=== PATIENT | male | born 1975 | race Caucasian/White ===

== ENCOUNTER 2016-12-11 11:28 | Emergency (ER) | payer MEDICAID ==
[~2016-12-11] VITALS: Ht 182.9 cm; Wt 109.1 kg
[~2016-12-11 11:28] MED LIST: BUPR150T8 PO; BUSP15TA3 PO; GABA400C PO; HYDR-3797 PO; PRAZ2CAP PO; PRAZ2CAP2 PO; QUET100T69 PO; QUET300T44 PO; ZOLP5TAB6 PO
[2016-12-11 11:30] VITALS: BP 170/112; PULSE 93; RESP 16; O2SAT 97
--- NOTE | 2016-12-11 12:09 | ED.REPORT ---
HPI-Psychiatric Illness Date of Service December 11, 2016 ED Provider: History of Present Illness: etoh is 0.00 at 1209. lost safe space was in the corner of his house, states will be losing his house. Mother has had 3 strokes in 3 months. does not want to be admitted. wants help. no primary care doesn't like providers. [facility] no thoughts of self harm U tox is positive for thc only. Nursing Notes Stated Complaint: POSSIBLE PTSD CRISIS Chief Complaint: Psychiatric Complaint Nursing Notes Reviewed: Yes Allergies: Coded Allergies: No Known Allergies (Verified Allergy, Unknown, 12/11/16) Scheduled Bupropion ER (Wellbutrin SR) 150 Mg Tablet.er 150 MG PO BID Buspirone (Buspirone) 15 Mg Tablet 15 MG PO BID Gabapentin (Neurontin) 400 Mg Capsule 1,200 MG PO BID Prazosin (Prazosin) 2 Mg Capsule 2 MG PO HS Prazosin (Minipress) 2 Mg Capsule 4 MG PO HS Quetiapine Fumarate (Quetiapine Fumarate) 300 Mg Tablet 300 MG PO DAILY Quetiapine Fumarate (Quetiapine Fumarate) 100 Mg Tablet 200 MG PO HS Zolpidem (Zolpidem) 5 Mg Tablet 5 MG PO HS Scheduled PRN Hydroxyzine Pamoate (HydrOXYzine Pamoate) 25 Mg Capsule 50 MG PO Q4H PRN PRN anxiety/agitation/insomnia Quetiapine Fumarate (Quetiapine Fumarate) 100 Mg Tablet 100 MG PO Q4H PRN PRN For Agitation General Time Seen by MD: 12:09 Chief Complaint Other (poor coping skills) Hx Obtained From: Patient Onset Occurred: More than a week ago... 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 Family History Brother has Guillain-Jaroso after being diagnosed with leukemia or blood dyscrasia himself. Son has leukemia. Patient reports both these events have been highly traumatic, and he has a diagnosis of PTSD following his son's illness Smoking History Current Every Day Smoker Social History Drug Use: Denies drug use Ambulatory Status Independent Review of Systems Basic Review of Systems Eyes: Vision NL, No discharge ENT: Hearing NL, No pain, No nasal congestion, No pharyngeal pain : No dysuria, No frequency Musculoskeletal: No extremity swelling, No extremity pain, Full range of motion , Joints NL Hematologic: No bleeding, No bruising Endocrine: No cold intolerance, No heat intolerance, No weight gain, No weight loss Allergy / Immune: No allergy Physical Exam Initial Vital Signs Vital Signs (First) Date Time Temp Pulse Resp B/P Pulse Ox O2 Delivery O2 Flow Rate FiO2 12/11/16 11:30 36.6 93 16 170/112 97 Room Air Initial VS: Reviewed, Vital signs abnormal Head / Eyes: Atraumatic, Normocephalic, PERRL ENT: Mucous membranes moist, Conjunctiva normal, No scleral icterus Neck: Supple, Non-tender, Full range of motion Respiratory: Breath sounds normal, Clear to auscultation, No respiratory distress Cardiovascular: Regular rate & rhythm, Heart sounds normal, Intact distal pulses Abdomen / GI: Soft, Non-tender, No guarding, No rebound, No distention Back: No CVA tenderness Lymphatic: No lymphadenopathy Extremities: Vascular intact, Neuro intact, No swelling, No tenderness Skin: Warm, Dry, No cyanosis General/Constitutional: Awake, Alert, No acute distress Neurologic: Oriented X3, Speech NL, No motor deficits Psychiatric: Affect NL, Mood NL, Not suicidal, Not homicidal, No hallucinations , Cognitive function NL, Judgment/insight NL, Thought content NL ENT: Atraumatic, Airway patent, Mucous membranes moist, Pharynx NL, No peritonsillar abscess Respiratory / Chest: Atraumatic, Breath sounds NL, Breath sounds = bilat, No respiratory distress Cardiovascular: Heart rate NL, Regular rhythm, Heart sounds NL, No gallop Interpretation & Diagnostics Lab Results Interpretation Result Diagram: 12/11/16 1240 12/11/16 1240 Test 12/11/16 12:00 12/11/16 12:40 Hold Urine Received (Received) White Blood Count 5.7th/mm3 (3.8-10.1) Red Blood Count 5.15mil/mm3 (4.40-5.80) Hemoglobin 15.3g/dL (13.8-17.2) Hematocrit 44.8% (41.0-50.0) Mean Corpuscular Volume 87.0fL (81-100) Mean Corpuscular Hemoglobin 29.7pg (27.0-35.0) Mean Corpuscular Hemoglobin Concent 34.2% (32.0-37.0) Red Cell Distribution Width 13.2% (12.3-15.4) Platelet Count 171bil/L (150-400) Neutrophils (%) (Auto) 69.5% (40-74) Lymphocytes (%) (Auto) 19.4% (14-46) Monocytes (%) (Auto) 9.1% (4-12) Eosinophils (%) (Auto) 0.9% (0-5) Basophils (%) (Auto) 0.9% (0-3) Sodium Level 143mEq/L (134-144) Potassium Level 4.1mEq/L (3.5-5.2) Chloride Level 104mEq/L (97-108) Carbon Dioxide Level 23mmol/L (18-29) Blood Urea Nitrogen 12mg/dL (6-24) Creatinine 0.64mg/dL (0.76-1.27) Estimat Glomerular Filtration Rate 146mL/min (>59) Glucose Level 106mg/dL (60-99) Calcium Level 9.7mg/dL (8.5-10.1) Total Bilirubin 0.6mg/dL (0.0-1.2) Aspartate Amino Transf (AST/SGOT) 19U/L (0-50) Alanine Aminotransferase (ALT/SGPT) 33U/L (0-44) Alkaline Phosphatase 85U/L (25-150) Total Protein 7.6g/dL (6.4-8.4) Albumin 4.7g/dL (3.4-5.0) Thyroid Stimulating Hormone (TSH) 1.180uIU/mL (0.450-4.500) Hold [place] Top Tube Received (Received) Re-Eval/Medical Decision Med Decision/Clinical Course 41 year old male presents with overwhelming issues. requesting help. Socail worker has patient do intake on phone, he has primary care. Discharge & Departure Impression: Primary Impression: Acute situational disturbance Additional Instructions: Your CBC is normal as is your urine. Chemistry labs have returned and are normal. . You have been able to speak with [facility] and have an appointment on Thursday12/16/2016 at noon. REturn if you have any thoughts of self harm. Please keep all appointments as scheduled. Referrals: Jaelyn Nowak MD (PCP) EDSupervising Provider for APC: Zoë Main MD copies to: Jaelyn Nowak MD, Sue ARNP December 11, 2016 12:09
[2016-12-11 12:51] LABS: BASOPHILS % (AUTO) 0.9 % (0-3); EOSINOPHILS % (AUTO) 0.9 % (0-5); MONOCYTES % (AUTO) 9.1 % (4-12); Mean Corpuscular Hemoglobin 29.7 pg (27.0-35.0); NEUTROPHILS % (AUTO) 69.5 % (40-74); Platelet Count 171 bil/L (150-400)
[2016-12-11 14:11] VITALS: BP 142/94; PULSE 88; RESP 18; O2SAT 98
== END 2016-12-11 14:12 | disposition home or self-care (01) ==
LOC: SED 11:28
DX: F43.0 Acute stress reaction (principal); F17.200 Nicotine dependence, unspecified, uncomplicated; F43.10 Post-traumatic stress disorder, unspecified; Z79.899 Other long term (current) drug therapy